=== PATIENT | male | born 1950 | race Caucasian/White ===

== ENCOUNTER 2017-08-30 19:51 | Emergency (ER) | payer OTHER ==
[~2017-08-30] VITALS: Ht 182.9 cm; Wt 65.5 kg
[2017-08-30 20:13] VITALS: Ht 182.9 cm; Wt 65.5 kg
[2017-08-30 21:35] VITALS: BP 119/65
== END 2017-08-30 21:35 | disposition home or self-care (01) ==
LOC: ED 19:51
DX: M79.1 Myalgia (principal); R53.1 Weakness